=== PATIENT | female | born 1975 | race Caucasian/White ===

== ENCOUNTER 2018-09-05 05:50 | Day surgery (SDC) | payer OTHER ==
[~2018-09-05 05:50] MED LIST: OMEPRAZOLE20 M1 PO; PROTONIX20 MG PO
[2018-09-05] MEDS ORDERED: PERCOCET 5-3251 EACH PO (09:54)
[2018-09-05] MEDS ORDERED: COLACE100 MG PO (09:54)
== END 2018-09-05 10:35 | disposition home or self-care (01) ==
LOC: CIR.AMB 05:50
DX: K64.8 Other hemorrhoids (principal); K62.89 Other specified diseases of anus and rectum